=== PATIENT | male | born 1990 | race Caucasian/White ===

== ENCOUNTER 2017-07-23 06:17 | Emergency (ER) | payer OTHER ==
[~2017-07-23] VITALS: Ht 175.2 cm; Wt 72.6 kg
[~2017-07-23 06:17] MED LIST: AMOXICILLIN500 MG PO; ANAPROX DS550 MG PO; BENADRYL25 M2 PO; CLARITIN10 MG PO; CLEOCIN150 MG PO; KEFLEX500 MG PO; MEDROL DOSEPAK4 MG PO; MOTRIN400 MG PO; MOTRIN600 MG PO; MOTRIN800 MG PO; MULTIPLE VITAMI1 CAP PO; NAPROSYN500 MG PO; NKHM; NKHM PO; PEN-VEE K500 MG PO; PYRIDIUM200 MG PO; ROBAXIN500 MG PO; TYLENOL W/CODEI1 TA2 PO; ULTRAM50 MG PO; VIBRA-TAB100 MG PO; WYMOX500 MG PO; ZITHROMAX Z PA250 MG PO; ZOFRAN ODT4 MG SL; ZOFRAN4 MG PO
[2017-07-23 06:22] VITALS: BP 167/102
[2017-07-23] MEDS ORDERED: PREDNISONE20 M1 PO (06:49)
[2017-07-23] MEDS ORDERED: AMOXICILLIN500 M2 PO (06:49)
[2017-07-23] MEDS ORDERED: OCEAN104 ML NAS (06:49)
== END 2017-07-23 07:06 | disposition home or self-care (01) ==
LOC: ED 06:17
DX: J01.00 Acute maxillary sinusitis, unspecified (principal); J30.89 Other allergic rhinitis; Z91.018 Allergy to other foods; Z79.899 Other long term (current) drug therapy

== ENCOUNTER 2018-01-12 17:39 | Emergency (ER) | payer OTHER ==
[~2018-01-12] VITALS: Wt 70.3 kg
[~2018-01-12 17:39] MED LIST changes: +AMOXICILLIN500 M2 PO; +OCEAN104 ML NAS; +PREDNISONE20 M1 PO
[2018-01-12 17:46] VITALS: BP 127/78
[2018-01-12] MEDS ORDERED: ZOFRAN ODT4 MG SL (17:57)
== END 2018-01-12 18:07 | disposition home or self-care (01) ==
LOC: ED 17:39
DX: R11.2 Nausea with vomiting, unspecified (principal); R51 Headache; R42 Dizziness and giddiness; F17.200 Nicotine dependence, unspecified, uncomplicated

== ENCOUNTER 2019-07-03 21:03 | Emergency (ER) | payer SELFPAY ==
[~2019-07-03] VITALS: Ht 177.8 cm; Wt 72.6 kg
[2019-07-03 21:06] VITALS: BP 154/102
[2019-07-03 22:21] LABS: BASO # 0.1 10*3/uL (0.0-0.1); BASO % 0.5 % (0.0-1.0); EOS # 0.2 10*3/uL (0.0-0.4); EOS % 1.5 % (1.0-4.0); HEMATOCRIT 46.9 % (42.0-52.0); HEMOGLOBIN 16.4 g/dl (14.0-18.0); LYMPH # 3.1 10*3/uL (1.3-4.4); LYMPH % 28.9 % (27.0-41.0); MEAN CELL VOLUME 90.4 fl (80.0-94.0); MEAN CORPUSCULAR HGB 31.6 pg (27.0-31.0); MEAN PLATELET VOLUME 11.2 fl (9.6-12.3); MONO # 1.2 10*3/uL (0.1-1.0); MONO % 10.9 % (3.0-9.0); NEUT # 6.2 10*3/uL (2.3-7.9); NEUT % 57.9 % (47.0-73.0); PLATELET COUNT AUTOMATED 258 10*3/uL (130-400); RED BLOOD COUNT 5.19 10*6/uL (4.50-5.90); RED CELL DISTRI WIDTH 13.2 % (0-14.5); WHITE BLOOD COUNT 10.8 10*3/uL (4.8-10.8)
[2019-07-03 22:37] LABS: ALBUMIN 4.3 gm/dl (3.1-4.5); ALKALINE PHOSPHATASE 81 U/L (45-117); BUN 19 mg/dl (7-24); CHLORIDE 101 mmol/L (98-107); CREATININE 1.07 mg/dL (0.70-1.30); LIPASE 49 U/L (73-393); POTASSIUM 3.5 mmol/L (3.5-5.1); SGOT/AST 36 IU/L (3-35); SGPT/ALT 42 U/L (12-78); SODIUM 134 mmol/L (136-145); TOTAL PROTEIN 8.4 gm/dL (6.4-8.2)
[2019-07-04] MEDS ORDERED: ZOFRAN4 MG PO (00:42)
== END 2019-07-04 01:04 | disposition home or self-care (01) ==
LOC: ED 21:03
PROVIDERS: Physician Assistant
DX: R11.2 Nausea with vomiting, unspecified (principal); F17.200 Nicotine dependence, unspecified, uncomplicated

== ENCOUNTER 2021-01-13 16:24 | Emergency (ER) | payer SELFPAY ==
[~2021-01-13] VITALS: Ht 177.8 cm; Wt 74.8 kg
[2021-01-13 16:32] VITALS: BP 130/68
[2021-01-13] MEDS ORDERED: ROBAXIN-750750 MG PO (20:05)
[2021-01-13] MEDS ORDERED: IBUPROFEN600 MG PO (20:05)
== END 2021-01-13 20:17 | disposition home or self-care (01) ==
LOC: ED 16:24
DX: S33.5XXA Sprain of ligaments of lumbar spine, initial encounter (principal); S30.0XXA Contusion of lower back and pelvis, initial encounter; S00.93XA Contusion of unspecified part of head, initial encounter; W07.XXXA Fall from chair, initial encounter; Y93.89 Activity, other specified; Y92.89 Other specified places as the place of occurrence of the external cause; Y99.8 Other external cause status

== ENCOUNTER 2021-02-07 14:55 | Emergency (ER) | payer SELFPAY ==
[~2021-02-07] VITALS: Wt 74.8 kg
[~2021-02-07 14:55] MED LIST changes: +IBUPROFEN600 MG PO; +ROBAXIN-750750 MG PO
[2021-02-07 14:59] VITALS: BP 157/96
[2021-02-07] MEDS ORDERED: SEPTDS PO (15:27)
== END 2021-02-07 16:15 | disposition home or self-care (01) ==
LOC: ED 14:55
DX: H00.031 Abscess of right upper eyelid (principal); F17.200 Nicotine dependence, unspecified, uncomplicated; Z79.899 Other long term (current) drug therapy

== ENCOUNTER 2023-11-09 14:28 | Emergency (ER) | payer BC ==
[~2023-11-09] VITALS: Ht 177.8 cm; Wt 68.0 kg
[~2023-11-09 14:28] MED LIST changes: +SEPTDS PO
[2023-11-09 15:02] VITALS: BP 139/93
[2023-11-09] MEDS ORDERED: AMOX-CLAV 875-1 EACH PO (15:39)
== END 2023-11-09 15:54 | disposition home or self-care (01) ==
LOC: ED 14:28
DX: H66.92 Otitis media, unspecified, left ear (principal); Z98.890 Other specified postprocedural states; F17.210 Nicotine dependence, cigarettes, uncomplicated

== ENCOUNTER → 2025-10-12 | Outpatient (CLI) | payer BC ==
[~2025-10-12] MED LIST changes: +AMOX-CLAV 875-1 EACH PO
[2025-10-12 16:32] LABS: MEAN CELL VOLUME 88.4 fl (80.0-94.0); MEAN CORPUSCULAR HGB 31.3 pg (27.0-31.0); MEAN PLATELET VOLUME 9.6 fl (9.6-12.3); NUCLEATED RED BLOOD CELL 0.0 % (0.0-0.0); NUCLEATED RED BLOOD CELL 0.0 10*3/uL (0.0-0.0); PLATELET COUNT AUTOMATED 357 10*3/uL (130-400); RED CELL DISTRI WIDTH 13.2 % (0-14.5)
[2025-10-12 16:33] LABS: MANUAL DIFF REFLEX YES
[2025-10-12 16:54] LABS: BASOPHILS 1 % (0-1)
[2025-10-12 16:55] LABS: PLATELET SUFFICIENCY NORMAL (NORMAL)
[2025-10-12 16:57] LABS: BUN 10 mg/dl (9-23); SGPT/ALT 38 U/L (5-49)
== END | disposition home or self-care (01) ==
LOC: LAB 15:40
PROVIDERS: ATTEND Internal Medicine
DX: D72.829 Elevated white blood cell count, unspecified (principal)